=== PATIENT | male | born 1995 | race Caucasian/White ===

== ENCOUNTER 2017-12-23 22:07 | Emergency (ER) | payer OTHER, BC, MEDICAID ==
[2017-12-24] MEDS: IBUPROFEN 600 MG TAB PO (00:31)
== END 2017-12-24 02:15 | disposition home or self-care (01) ==
LOC: FTE 22:07
DX: S92.421A Displaced fracture of distal phalanx of right great toe, initial encounter for closed fracture (principal); S90.111A Contusion of right great toe without damage to nail, initial encounter; W20.8XXA Other cause of strike by thrown, projected or falling object, initial encounter; Y92.9 Unspecified place or not applicable
CPT/HCPCS: 73630; 99283-25